=== PATIENT | female | born 1945 | race Caucasian/White ===

== ENCOUNTER 2017-07-08 12:45 | Emergency (ER) | payer OTHER ==
[~2017-07-08 12:45] MED LIST: LASIX20 M1 PO; LASIX20 MG PO; NYSTATIN100000 U/2 TOP; NYSTATIN60 GM TOP
[2017-07-08 12:54] VITALS: BP 202/90
--- NOTE | 2017-07-08 13:48 | CT SCAN REPORT ---
EXAMINATION: CT HEAD WITHOUT CONTRAST CLINICAL INFORMATION: Severe headache. Facial droop. COMPARISON: No relevant prior imaging. TECHNIQUE: Contiguous axial imaging was performed from the skull base to vertex without intravenous administration of contrast. DLP: 619.37 mGy-cm FINDINGS: There is no acute intracranial hemorrhage or abnormal extra-axial collection. No intracranial mass effect or midline shift. Lateral and third ventricles are proportionate to the subarachnoid spaces. No hydrocephalus. Ill-defined foci of hypoattenuation are visualized throughout the periventricular white matter that most likely represent a chronic manifestation of small vessel ischemia. Grossly no evidence of acute territorial infarct. The calvarium and skull base are intact. Trace mastoid tip effusions. Paranasal sinuses are well-aerated. Globes and orbits are symmetric. IMPRESSION: There are scattered chronic small vessel ischemic changes throughout the periventricular white matter. No evidence of acute territorial infarct or hemorrhage.
--- NOTE | 2017-07-08 20:22 | ED GENERAL ADULT ---
History of Present Illness General Chief Complaint: Neuro Symptoms/ Deficit Stated Complaint: RIGHT SIDED FACIAL DROOP, MULLINS Source: patient, family Exam Limitations: poor historian Vital Signs & Intake/Output Vital Signs & Intake/Output Vital Signs Date Time Temp Pulse Resp B/P B/P Pulse O2 O2 Flow FiO2 Mean Ox Delivery Rate 07/08 1254 98.2 78 18 202/90 99 Room Air Allergies Coded Allergies: Sulfa (Sulfonamide Antibiotics) (RASH 09/15/15) morphine (RASH 09/15/15) Reconcile Medications Furosemide (Lasix) 20 MG TAB 1 TAB PO DAILY DEPENDENT EDEMA Furosemide (Lasix) 20 MG TABLET 1 TAB PO DAILY EDEMA Nystatin 100,000 U/GM POW 1 HERNANDEZ TOP BID CANDIDIASIS apply to affected area(s) Nystatin 60 GM POWDER 1 HERNANDEZ TOP BID RASH apply to affected area(s) Triage Note: 71F ARRIVES WITH LEFT SIDED FACIAL DROOP SINCE LAST NIGHT AND HEADACHE INTERMITTENT ALSO SINCE LAST NIGHT. LEFT HAND GRASP SLIGHTLY WEAKER THAN RIGHT. ABLE TO FOLLOW COMMANDS, SPEECH GENERALLY CLEAR. LEFT FACE IS NUMB COMPARED TO LEFT. UNABLE TO CRINKLE UP FOREHEAD. NO TEARING TO EYES. REPORTS SHE WAS DIAGNOSED WITH SHINGLES LAST WEEK TO FACE. TO FACE AND IS ON VALCYCLOVIR. ?BELLS PALSY Triage Nurses Notes Reviewed? yes Onset: Abrupt Duration: day(s): Timing: recent history HPI: 07/08/17 I was notified to see the patient in triage for concern of possible stroke. She is a 71-year-old female who is status post varicella-zoster to the face who now presented with 3 days of left facial weakness, she denied slurred speech or new upper or lower extremity weakness. She denied any visual complaints. The patient was informed that she needed to have a CT scan and be evaluated. She did allow the CAT scan to be done but subsequently walked out before the results were available. 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 I called him at home and told them they must follow-up with the broke beater operator tomorrow. Past History Travel History Traveled to [place] past 21 day No Medical History Any Pertinent Medical History? see below for history Neurological: NONE EENT: NONE Cardiovascular: hypertension, hyperlipidemia Respiratory: NONE Gastrointestinal: BLEEDING ULCER Hepatic: NONE Renal: NONE Musculoskeletal: NONE Psychiatric: insomnia Endocrine: hypothyroidism, BORDERLINE DM Surgical History Surgical History: , hysterectomy Psychosocial History What is your primary language Kyrgyz Tobacco Use: Current Daily Use Daily Tobacco Use Amount/Type: => 5 Cigarettes daily Family History Hx Contributory? No Review of Systems Review of Systems Constitutional: Denies: fever. Respiratory: Denies: short of breath. Cardiovascular: Denies: chest pain. GI: Reports: no symptoms. Genitourinary: Reports: no symptoms. Musculoskeletal: Reports: no symptoms. Skin: Reports: see HPI. Neurological/Psychological: Reports: other (left facial weakness). Hematologic/Endocrine: Reports: no symptoms. Physical Exam Physical Exam General Appearance: alert, awake, anxious, mild distress Head: atraumatic Eyes: Bilateral: normal appearance, PERRL, EOMI. Ears, Nose, Throat: normal pharynx Neck: supple Respiratory: no respiratory distress Cardiovascular: regular rate/rhythm Gastrointestinal: soft, non-tender Back: decreased range of motion Extremities: pedal edema Neurologic/Psych: awake, alert, oriented x 3, facial droop Skin: rash Core Measures ACS in differential dx? No CVA/TIA Diagnosis: No Sepsis Present: No Sepsis Focused Exam Completed? No Progress Differential Diagnoses I considered the following diagnoses in my evaluation of the patient: Plan of Care: The patient walked out of the emergency department after being evaluated in triage and having the CT scan of the head done. The CT scan was negative for evidence of stroke, her symptoms started 3 days ago. She had no significant upper or lower extremity weakness, minimal reduced range of motion to left hip flexion from chronic pain. She had an erythematous resolving rash to the left face. She was diagnosed and treated for zoster. She had a left facial droop. She was told to follow-up with the broke beater operator tomorrow. She was told to have her blood pressure repeated. 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 The patient walked out before full evaluation and discharge. PATIENT: CROW VILLALOBOS PRESENT AGE: 71 PATIENT ACCOUNT NO: [id number] : 47 LOCATION: [facility] ORDERING PHYSICIAN: Diony Aly DO SERVICE DATE: 07/08/17 EXAM TYPE: CAT - CT HEAD WO IV CONTRAST EXAMINATION: CT HEAD WITHOUT CONTRAST CLINICAL INFORMATION: Severe headache. Facial droop. COMPARISON: No relevant prior imaging. TECHNIQUE: Contiguous axial imaging was performed from the skull base to vertex without intravenous administration of contrast. DLP: 619.37 mGy-cm FINDINGS: There is no acute intracranial hemorrhage or abnormal extra-axial collection. No intracranial mass effect or midline shift. Lateral and third ventricles are proportionate to the subarachnoid spaces. No hydrocephalus. Ill-defined foci of hypoattenuation are visualized throughout the periventricular white matter that most likely represent a chronic manifestation of small vessel ischemia. Grossly no evidence of acute territorial infarct. The calvarium and skull base are intact. Trace mastoid tip effusions. Paranasal sinuses are well-aerated. Globes and orbits are symmetric. IMPRESSION: There are scattered chronic small vessel ischemic changes throughout the periventricular white matter. No evidence of acute territorial infarct or hemorrhage. DICTATED BY: Goldy Ingram MD DATE/TIME DICTATED:07/08/171340 [employer] MARKER:CORNELIA DATE/TIME TRANSCRIBED:07/08/171340 CONFIDENTIAL, DO NOT COPY WITHOUT APPROPRIATE AUTHORIZATION. <Electronically signed in Other Vendor System> SIGNED BY: Goldy Ingram MD 07/08 The patient has been treated for varicella-zoster. She will follow-up in the ER tomorrow if she is unable to get into see the broke beater operator. Critical Care Note Critical Care Note Critical Care Time: non-applicable
[2017-07-09] MEDS ORDERED: PREDNISONE10 M2 PO (17:04)
[2017-07-09] MEDS ORDERED: MILK OF MA400 MG/52 PO (17:04)
[2017-07-09] MEDS ORDERED: NEURONTIN300 M1 PO (17:04)
[2017-07-09] MEDS ORDERED: VALTREX1000 MG PO (17:04)
[2017-07-09] MEDS ORDERED: VIROPTIC7.5 ML OPH (19:06)
== END 2017-07-08 17:09 ==
LOC: ERH 12:45
DX: G51.0 Bell's palsy (principal); B02.9 Zoster without complications